=== PATIENT | male | born 1985 | race Caucasian/White ===

== ENCOUNTER 2022-07-30 07:19 | Outpatient (CLI) | payer BC | END 2022-07-30 07:20 | disposition home or self-care (01) | LOC: RAD-FRANK 07:19 | PROVIDERS: ATTEND Nurse Practitioner Family | DX: Z76.89 Persons encountering health services in other specified circumstances (principal); M54.50 Low back pain, unspecified; M47.816 Spondylosis without myelopathy or radiculopathy, lumbar region; M46.06 Spinal enthesopathy, lumbar region; M89.38 Hypertrophy of bone, other site | CPT/HCPCS: 72100 ==